=== PATIENT | female | born 1980 | race Caucasian/White ===

== ENCOUNTER 2017-02-05 15:47 | Emergency (ER) | payer SELFPAY ==
[2017-02-05] MEDS ORDERED: Ondansetron HCl/PF 4 MG/2 ML Vial ONE (16:49)
[2017-02-05] MEDS ORDERED: Lorazepam 2 MG/ML VIAL ONE (16:49)
[2017-02-05 17:01] LABS: #Basophils 0.1 thou/uL (0.0-0.2); #Lymphocytes 2.5 thou/uL (1.20-3.40); #Monocytes 0.8 thou/uL (0.11-0.59); #Neutrophils 9.7 thou/uL (1.40-6.50); %Basophils 0.7 % (0.0-1.0); %Eosinophils 0.3 % (0.0-10.0); %Lymphocytes 19.2 % (21.0-51.0); %Monocytes 5.8 % (0.0-10.0); Hematocrit 47.8 % (36.0-47.0); Mean Platelet Volume 6.5 fL (7.4-10.4); Red Blood Cell (RBC) Count 5.21 mill/uL (4.20-5.40); White Blood Cell (WBC) Count 13.1 thou/uL (4.8-10.8)
[2017-02-05 17:23] LABS: ALT (SGPT) 36 U/L (8-55); AST (SGOT) 24 U/L (5-34); Alkaline Phosphatase 83 U/L (40-150); Anion Gap 16 mmol/L (10-20); BUN (Urea Nitrogen) 9 mg/dL (7.0-18.7); Bilirubin, Total 0.4 mg/dL (0.2-1.2); Calc. Creatinine Clearance 0 mL/min (70-130); Calcium 10.8 mg/dL (7.8-10.44); Carbon Dioxide 20 mmol/L (22-29); Chloride 106 mmol/L (98-107); Estimated GFR-MDRD 83; Globulin 4.6 g/dL (2.4-3.5); Protein, Total 9.3 g/dL (6.0-8.3)
[2017-02-05 17:32] LABS: Troponin I Less than 0.010 ng/mL (< 0.028)
[2017-02-05 17:34] LABS: Acetaminophen Less than 6.0 mcg/mL (10.0-30.0); CK (CPK) 40 U/L (29-168); Salicylate Less than 8.0 mg/dL (15.0-30.0)
[2017-02-05 17:40] LABS: Bilirubin Negative (Negative); Blood, Urine Negative (Negative); Glucose, Urine (Dipstick) Negative (Negative); Ketone, Urine Negative (Negative); Nitrite Negative (Negative); Protein, Urine (Dipstick) 100 mg/dL (Neg-Trace); Urobilinogen 0.2 mg/dL (0.2-1.0)
[2017-02-05 17:42] LABS: Bacteria/HPF 1+ HPF (None Seen); Hyaline Casts/LPF 0-3 HYALINE CAST LPF (0-3 Hyaline); Squamous Epithelial 0-3 HPF (0-3)
[2017-02-05 17:47] LABS: Amphetamine Not Detected (NotDetected); Methadone Not Detected (NotDetected); Methamphetamine Not Detected (NotDetected)
[2017-02-05] MEDS ORDERED: Ketorolac Tromethamine 30 MG/ML VIAL ONE (18:13)
[2017-02-05] MEDS ORDERED: Acetaminophen 500 MG TAB ONE (19:59)
== END 2017-02-05 20:54 | disposition home or self-care (01) ==
LOC: ERS 15:47
DX: F41.9 Anxiety disorder, unspecified (principal); G44.209 Tension-type headache, unspecified, not intractable; M32.9 Systemic lupus erythematosus, unspecified; M06.9 Rheumatoid arthritis, unspecified; F17.210 Nicotine dependence, cigarettes, uncomplicated; Z79.899 Other long term (current) drug therapy
CPT/HCPCS: 80053; 80306; 80307; 81003; 81015; 81025; 82550; 82553; 84443; 84484; 85025; 87086; 93005; 94760; 96361; 96374; 96375; J1885; J2060; J2405

== ENCOUNTER 2017-11-05 22:45 | Inpatient (IN) | payer SELFPAY ==
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
[2017-11-05] MEDS ORDERED: Bacitracin Zinc 1 Packet ONE (23:15)
[2017-11-06 00:14] LABS: #Basophils 0.1 thou/uL (0.0-0.2); #Eosinphils 0.1 thou/uL (0.0-0.7); #Lymphocytes 2.7 thou/uL (1.20-3.40); #Monocytes 0.5 thou/uL (0.11-0.59); #Neutrophils 6.5 thou/uL (1.40-6.50); %Basophils 0.9 % (0.0-1.0); %Eosinophils 1.4 % (0.0-10.0); %Lymphocytes 27.4 % (21.0-51.0); %Monocytes 5.3 % (0.0-10.0); Mean Corpuscular HGB CONC 34.8 g/dL (32.0-36.0); Mean Corpuscular Hemoglobin 31.4 pg (27.0-31.0); Mean Corpuscular Volume 90.1 fL (78.0-98.0); Mean Platelet Volume 6.9 fL (7.4-10.4); Platelet Count 275 thou/uL (130-400); RBC Distribution Width 12.1 % (11.5-14.5); Red Blood Cell (RBC) Count 4.15 mill/uL (4.20-5.40)
[2017-11-06 00:21] LABS: BHCG - Serum Negative (NEGATIVE); Pregs Control Background? CLEAR/WHITE (CLR/WHITE); Pregs Control Bar Appear? YES (CONTROL BAR)
[2017-11-06 00:29] LABS: ALT (SGPT) 20 U/L (8-55); AST (SGOT) 19 U/L (5-34); Albumin 4.3 g/dL (3.5-5.0); Alkaline Phosphatase 62 U/L (40-150); Anion Gap 14 mmol/L (10-20); BUN (Urea Nitrogen) 9 mg/dL (7.0-18.7); Bilirubin, Total 0.5 mg/dL (0.2-1.2); CK (CPK) 60 U/L (29-168); Calc. Creatinine Clearance 0 mL/min (70-130); Calcium 9.5 mg/dL (7.8-10.44); Carbon Dioxide 24 mmol/L (22-29); Chloride 104 mmol/L (98-107); Estimated GFR-MDRD 90; Globulin 3.6 g/dL (2.4-3.5); Glucose 98 mg/dL (70-105); Potassium 3.5 mmol/L (3.5-5.1); Protein, Total 7.9 g/dL (6.0-8.3); Sodium 138 mmol/L (136-145)
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
[2017-11-06] MEDS ORDERED: Dextrose 5% in Water 1,000 ML IV PRN (02:22)
[2017-11-06] MEDS ORDERED: Ondansetron HCl/PF 4 MG/2 ML Vial IVP PRN ×3 (02:22→14:25)
[2017-11-06] MEDS ORDERED: Ondansetron ODT 4 MG TAB PO PRN ×2 (02:22→14:25)
[2017-11-06] MEDS ORDERED: Dextrose 50% Abboject 50 ML SYRINGE SLOW IVP PRN (02:22)
[2017-11-06] MEDS ORDERED: hydrALAZINE 20 MG/ML VIAL SLOW IVP PRN (02:22)
[2017-11-06] MEDS: Ketorolac Tromethamine 30 MG/ML VIAL IVP SCH ×5 (02:38→23:07)
[2017-11-06] MEDS: Sodium Chloride 0.9% 1,000 ML IV SCH ×3 (02:40→20:33)
[2017-11-06] MEDS ORDERED: Methocarbamol 1 GM in Sodium Chloride 0.9% 100 ML IVPB SCH (03:00)
[2017-11-06 04:00] VITALS: BMI 33.5
[2017-11-06 04:20] LABS: #Eosinphils 0.1 thou/uL (0.0-0.7); #Lymphocytes 2.7 thou/uL (1.20-3.40); #Monocytes 0.4 thou/uL (0.11-0.59); #Neutrophils 5.9 thou/uL (1.40-6.50); %Basophils 0.4 % (0.0-1.0); %Eosinophils 0.8 % (0.0-10.0); %Lymphocytes 29.1 % (21.0-51.0); %Monocytes 4.8 % (0.0-10.0); %Neutrophils 64.8 % (42.0-75.0); Mean Corpuscular HGB CONC 34.5 g/dL (32.0-36.0); Mean Corpuscular Hemoglobin 31.1 pg (27.0-31.0); Mean Corpuscular Volume 90.1 fL (78.0-98.0); Mean Platelet Volume 6.6 fL (7.4-10.4); Platelet Count 237 thou/uL (130-400); RBC Distribution Width 12.1 % (11.5-14.5); Red Blood Cell (RBC) Count 3.86 mill/uL (4.20-5.40); White Blood Cell (WBC) Count 9.2 thou/uL (4.8-10.8)
[2017-11-06 04:32] LABS: Lactic Acid 0.9 mmol/L (0.5-2.2)
[2017-11-06 04:41] LABS: Anion Gap 10 mmol/L (10-20); BUN (Urea Nitrogen) 8 mg/dL (7.0-18.7); Calc. Creatinine Clearance 162 mL/min (70-130); Calcium 9.3 mg/dL (7.8-10.44); Carbon Dioxide 25 mmol/L (22-29); Chloride 107 mmol/L (98-107); Estimated GFR-MDRD Greater than 90; Glucose 100 mg/dL (70-105); Phosphorus 3.1 mg/dL (2.3-4.7); Potassium 3.6 mmol/L (3.5-5.1); Sodium 138 mmol/L (136-145)
[2017-11-06] MEDS ORDERED: Acetaminophen 1,000 MG in Premix Bag 1 BAG IVPB SCH (06:00)
--- NOTE | 2017-11-06 08:22 | PDOC.EVN ---
Event Note - Event Note Event Note: Patient seen and examined. Please see Wilver Georges's H&P for full details.
[2017-11-06] MEDS: Famotidine 20 MG TAB PO SCH ×2 (08:31→20:32)
[2017-11-06] MEDS: Acetaminophen 500 MG TAB PO SCH ×2 (12:04→17:51)
[2017-11-06] MEDS ORDERED: Midazolam HCl 2 mg/2 ml Vial ONE (12:39)
[2017-11-06] MEDS ORDERED: CEFAZOLIN/Water 2 GM/20 ML SYRINGE ONE (12:43)
[2017-11-06] MEDS ORDERED: HYDROmorphone 0.5 MG/0.5 ML SYRINGE ONE ×7 (13:12→15:19)
[2017-11-06] MEDS ORDERED: HYDROmorphone 2 MG/ML VIAL SLOW IVP PRN (13:52)
[2017-11-06] MEDS ORDERED: Promethazine HCl 25 MG/ML VIAL IM PRN (13:52)
[2017-11-06] MEDS ORDERED: Meperidine HCl/PF 25 MG/ML VIAL SLOW IVP PRN (13:52)
[2017-11-06] MEDS ORDERED: Promethazine HCl 25 MG/ML VIAL SLOW IVP PRN (13:52)
[2017-11-06] MEDS ORDERED: Bupivacaine HCl 0.5%/Epinephrine 1:200,000/PF 30 ml Vial ONE (13:56)
[2017-11-06] MEDS ORDERED: Bisacodyl 10 MG SUPP PR PRN (14:25)
[2017-11-06] MEDS ORDERED: Milk Of Magnesia 30 ML UDCUP PO PRN (14:25)
[2017-11-06] MEDS ORDERED: Cepastat Lozenges 1 LOZ PO PRN (14:25)
[2017-11-06] MEDS ORDERED: Fleet Enema 133 ML BOT PR PRN (14:25)
[2017-11-06] MEDS ORDERED: Fentanyl 100 MCG/2 ML VIAL ONE ×2 (14:40→14:56)
[2017-11-06] MEDS ORDERED: PROPOFOL 200 MG/20 ML VIAL ONE (15:07)
[2017-11-06] MEDS ORDERED: Ondansetron HCl/PF 4 MG/2 ML Vial ONE (15:07)
[2017-11-06] MEDS ORDERED: Lidocaine 1% PF 5 ML VIAL ONE (15:07)
[2017-11-06] MEDS ORDERED: Ketorolac Tromethamine 30 MG/ML VIAL ONE (15:07)
[2017-11-06] MEDS ORDERED: Dexamethasone 20 MG/5 ML VIAL ONE (15:07)
--- NOTE | 2017-11-06 16:00 | RAD ---
RIGHT TIBIA/FIBULA: INDICATIONS: Open reduction and internal fixation. Imaging performed during this procedure. TECHNIQUE: A total of six fluoroscopic images were presented from the OR. FINDINGS: These images demonstrate an intramedullary jaya transfixing the tibia. POS: [facility]
[2017-11-06] MEDS: clonazePAM 1 MG TAB PO SCH ×2 (16:47→20:33)
[2017-11-06] MEDS: HYDROcodone/Acetaminophen 10/325 mg Tablet PO PRN (16:58)
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
--- NOTE | 2017-11-06 18:13 | OP ---
DATE OF OPERATION: 11/06/2017 PREOPERATIVE DIAGNOSIS: Displaced right tibia and fibula shaft fractures. POSTOPERATIVE DIAGNOSIS: Displaced right tibia and fibula shaft fractures. PROCEDURE: Closed reduction and intramedullary rodding of the right tibia. SURGEON: Woo Melton M.D. REPORT CLERK: LAUREEN Melgar ANESTHESIA: General. TECHNIQUE: The patient was given preoperative IV antibiotics, taken to the operating room and placed in supine position. Satisfactory general anesthesia was performed. The right lower extremity was s terilely prepped and draped in usual fashion. After exsanguination, tourniquet at the right thigh wa s raised to 250 mmHg. A longitudinal incision was made over the medial retinacular area down to the anteromedial aspect of the proximal tibia under fluoroscopic visualization. A guide pin was placed o n the proximal aspect of the tibia medial to the patellar tendon, it was then overreamed. The intram edullary canal was entered with a guidewire and the fracture was crossed and then sequentially reamed up to 11.5 mm. Appropriate length of the nail was measured and a Synthes cannulated tibial nail diane t was 10 mm in diameter and 345 mm in length was inserted into the tibial canal crossing the fracture . A 5.0 locking screw was placed proximally and one was placed distally and a 10 mm end cap was plac ed on the proximal aspect of the tibia. Again, this was all performed under fluoroscopic visualizati on and showed excellent reduction of the tibia and the fibula and proper placement of the jaya and scr ews. The wounds were then copiously irrigated with antibiotic solution. They were closed using #2 V icryl for the deeper retinacular tissue, 0 Vicryl for the fat and subcutaneous tissue, and skin was c losed with 3-0 Rapide. Sterile dressing was applied. Tourniquet was released. The patient was awak ened, extubated, and transferred to recovery room in stable condition. ESTIMATED BLOOD LOSS: 20 mL. TOURNIQUET TIME: 46 minutes.
[2017-11-06] MEDS: Senokot S 8.6-50 MG TAB PO SCH (20:32)
[2017-11-07] MEDS: Sodium Chloride 0.9% 1,000 ML IV SCH ×2 (04:19→11:46)
[2017-11-07] MEDS ORDERED: Levothyroxine 150 MCG TAB PO SCH (06:00)
[2017-11-07] MEDS: Ketorolac Tromethamine 30 MG/ML VIAL IVP SCH ×2 (06:37→11:53)
[2017-11-07] MEDS ORDERED: Ferrous Gluconate 324 MG TAB PO SCH (08:00)
[2017-11-07] MEDS ORDERED: Enoxaparin Sodium 40 MG/0.4 ML SYRINGE SC SCH (09:00)
[2017-11-07] MEDS ORDERED: Leflunomide 10 mg Tablet PO SCH (09:00)
[2017-11-07] MEDS ORDERED: Multivitamin W/ Minerals 1 TAB PO SCH (09:00)
[2017-11-07] MEDS: clonazePAM 1 MG TAB PO SCH (09:17)
[2017-11-07] MEDS: Famotidine 20 MG TAB PO SCH (09:18)
[2017-11-07] MEDS: HYDROcodone/Acetaminophen 10/325 mg Tablet PO PRN (09:18)
[2017-11-07] MEDS: Senokot S 8.6-50 MG TAB PO SCH (09:19)
[2017-11-07] MEDS ORDERED: HYDROcodone/Acetaminophen 10/325 mg Tablet PO PRN (11:19)
[2017-11-07 11:28] VITALS: BP 135/77; TEMP 98.2
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
== END 2017-11-07 13:00 | disposition home or self-care (01) | DRG 494 ==
LOC: ERS 22:45 → SURG A 11-06 01:50
PROVIDERS: ADMIT Surgery; ATTEND Surgery
PROC: 0QSJ06Z Reposition Right Fibula with Intramedullary Internal Fixation Device, Open Approach (ICD-10-PCS; principal; 2017-11-06)
PROC: 0QSG06Z Reposition Right Tibia with Intramedullary Internal Fixation Device, Open Approach (ICD-10-PCS; 2017-11-06)
DX: S82.401A Unspecified fracture of shaft of right fibula, initial encounter for closed fracture (principal); S82.201A Unspecified fracture of shaft of right tibia, initial encounter for closed fracture; G89.11 Acute pain due to trauma; M06.9 Rheumatoid arthritis, unspecified; M32.9 Systemic lupus erythematosus, unspecified; F41.9 Anxiety disorder, unspecified; V86.69XA Passenger of other special all-terrain or other off-road motor vehicle injured in nontraffic accident, initial encounter; Z88.8 Allergy status to other drugs, medicaments and biological substances
CPT/HCPCS: 36415; 51702; 71045; 72170; 76001; 80048; 80053; 82550; 83605; 83735; 84100; 84703; 85025; 93005; 96374; C1713; C1769; G0390; G8978-GP-CL; G8979-GP-CK; G8987-GO-CJ; G8988-GO-CJ; G8989-GO-CJ; J0131; J0670; J1100; J1170; J1650; J1885; J2001; J2250; J2270; J2405; J2704; J2800; J3010; J7050

== ENCOUNTER 2018-12-03 17:54 | Emergency (ER) | payer SELFPAY ==
--- NOTE | 2018-12-03 19:24 | RAD ---
Right ankle 3 views HISTORY: Pain and swelling. Internal fixation. FINDINGS: Ankle mortise and talar dome are intact. Mild osteophytosis. Tibial medullary jaya and heali ng fractures of the distal tibial and fibular shafts are apparent. No perihardware lucency. No acute fracture or dislocation. IMPRESSION: Healing lower leg fractures. No evidence of complication. No acute osseous abnormalities are demonstrated.
--- NOTE | 2018-12-03 19:38 | RAD ---
RIGHT FORELEG TWO VIEWS: INDICATIONS: History of leg swelling. COMPARISON: Prior exam dated 11/06/2017. FINDINGS: Since the comparison fluoroscopic examination, dated 11/06/2017, there has been interval healing of t he distal tibia and fibular shaft fractures. Intramedullary jaya is unchanged in position. There is soft tissue swelling of the right foreleg. IMPRESSION: 1. Interval healing of the distal tibia and fibula shaft fractures. 2. Intramedullary jaya projects in the expected position. 3. Soft tissue swelling of the right foreleg. POS: [facility]
== END 2018-12-03 19:55 | disposition home or self-care (01) ==
LOC: ERS 17:54
DX: S82.301D Unspecified fracture of lower end of right tibia, subsequent encounter for closed fracture with routine healing (principal); S82.401D Unspecified fracture of shaft of right fibula, subsequent encounter for closed fracture with routine healing; M25.571 Pain in right ankle and joints of right foot; F41.9 Anxiety disorder, unspecified; F17.210 Nicotine dependence, cigarettes, uncomplicated; M06.9 Rheumatoid arthritis, unspecified; Z79.899 Other long term (current) drug therapy; V86.99XA Unspecified occupant of other special all-terrain or other off-road motor vehicle injured in nontraffic accident, initial encounter